=== PATIENT | male | born 1980 | race African-American/Black ===

== ENCOUNTER 2017-03-22 19:52 | Emergency (ER) | payer OTHER | END 2017-03-22 20:23 | disposition left against medical advice (07) | LOC: ER 20:16 | DX: R07.9 Chest pain, unspecified (principal); Z53.21 Procedure and treatment not carried out due to patient leaving prior to being seen by health care provider ==

== ENCOUNTER 2020-06-17 17:48 | Emergency (ER) | payer BC, OTHER ==
[~2020-06-17] VITALS: Ht 180.3 cm; Wt 110.0 kg
[2020-06-17] MEDS ORDERED: CYCLOBENZAPRINE 10MG TABLET PO ONE (18:45)
[2020-06-17] MEDS ORDERED: KETOROLAC 30MG/ML VIAL IM ONE (18:45)
[2020-06-17 19:45] VITALS: BP 135/89
== END 2020-06-17 19:54 | disposition home or self-care (01) ==
LOC: ER 17:57
DX: S39.012A Strain of muscle, fascia and tendon of lower back, initial encounter (principal); M25.552 Pain in left hip; I10 Essential (primary) hypertension; E78.00 Pure hypercholesterolemia, unspecified; X50.9XXA Other and unspecified overexertion or strenuous movements or postures, initial encounter; Y93.89 Activity, other specified; Y92.89 Other specified places as the place of occurrence of the external cause
CPT/HCPCS: 72100; 72170; 96372; 99284; J1885

== ENCOUNTER 2022-05-28 22:22 | Emergency (ER) | payer BC, OTHER ==
[~2022-05-28] VITALS: Ht 175.3 cm; Wt 100.0 kg
[2022-05-29] MEDS ORDERED: TETANUS, DIPHTHERIA, PERTUSSIS VAC/PF 0.5ML (>10YR OLD) IM ONE (00:15)
[2022-05-29] MEDS ORDERED: CEFAZOLIN 1000MG PREMIX 50 ML IV ONE (00:15)
[2022-05-29] MEDS ORDERED: HYDROCODONE/ACETAMINOPHEN 10/325MG TABLET PO ONE ×2 (01:45→05:15)
[2022-05-29 03:04] LABS: BASOPHILS % 0.3 % (0.0-2.0); EOSINOPHILS % 0.2 % (0.0-5.0); HEMATOCRIT. 43.7 % (42.0-52.0); HEMOGLOBIN. 14.7 g/dL (14.0-18.0); LYMPHOCYTES % 7.2 % (20.0-50.0); MEAN CORPUSCULAR HEMOGLOBIN 30.5 pg (28.0-32.0); MEAN CORPUSCULAR VOLUME 90.7 fL (80.0-94.0); MEAN PLATELET VOLUME 7.9 fl (7.4-10.4); MONOCYTES % 4.5 % (2.0-8.0); NEUTROPHILS % 87.8 % (40.0-76.0); PLATELET 266 x1000/uL (130-400); RED BLOOD CELL COUNT 4.81 mill/uL (4.7-6.1); RED CELL DISTRIBUTION WIDTH 12.4 % (11.6-14.6)
[2022-05-29 03:13] LABS: CHLORIDE 101 mEq/L (98-107)
[2022-05-29] MEDS ORDERED: IBUP-2029 MT (05:03)
[2022-05-29 05:15] VITALS: BP 150/89
[2022-05-29] MEDS ORDERED: MORPHINE SULFATE 4 MG/ML CPJ (NOT FOR IM USE) IV ONE (05:15)
== END 2022-05-29 06:18 | disposition home or self-care (01) ==
LOC: ER 22:22
DX: S82.202A Unspecified fracture of shaft of left tibia, initial encounter for closed fracture (principal); V19.9XXA Pedal cyclist (driver) (passenger) injured in unspecified traffic accident, initial encounter; Y93.89 Activity, other specified; Y92.89 Other specified places as the place of occurrence of the external cause; Y99.8 Other external cause status
CPT/HCPCS: 36415; 71045; 72170; 72192; 73562; 73590; 73600; 80053; 83690; 85025; 86850; 86900; 86901; 99285; Z7610